=== PATIENT | male | born 1960 | race Hispanic/Latino ===

== ENCOUNTER 2018-02-09 07:44 | Inpatient (IN) | payer MEDICARE ==
[2018-02-09 07:45] VITALS: BMI 29.7
--- NOTE | 2018-02-09 08:02 | C.PDOC ---
History Of Present Illness 57 y/o male presents to the ED with complaints of new-onset and worsening pain to the right 2nd through 5th toes, beginning 2-3 weeks ago. Denies recent trauma. Patient feels as if the toes are . He reports developing new- onset redness to the right toes as well. Patient is also complaining of recurrent pain to the right mid calf and has history of prior right leg bypass surgery. States that he had similar prior calf pain many years ago which resolved after the bypass, but now pain has recurred. He denies any calf swelling. Patient also reports history of chronic chest pain due to trauma, upper GI bleed, and is on chronic pain meds. Time Seen by Provider: 02/09/18 08:02 Chief Complaint (Nursing): Medical Clearance History Per: Patient History/Exam Limitations: no limitations Onset/Duration Of Symptoms: Days Current Symptoms Are (Timing): Worse Past Medical History Reviewed: Historical Data, Nursing Documentation, Vital Signs Vital Signs: Last Vital Signs Temp 97.8 F 02/09/18 07:48 Pulse 62 02/09/18 07:48 Resp 20 02/09/18 07:48 BP 112/69 02/09/18 07:48 Pulse Ox 98 02/09/18 08:32 - Medical History PMH: Anemia, Arthritis, Bronchitis, CAD (2), Colonic Polyps, COPD, Diabetes, Diverticulitis (need sx as per pt), Gastrointestinal Ulcer, Gall Bladder Disease , HTN, Hypercholesterolemia, Peripheral Edema (rle +1), Pneumonia Denies: Cardia Arrhythmia, CHF, Depression, Mitral Valve Prolapse, Chronic Kidney Disease Surgical History: CABG, Cholecystectomy, Coronary Stent Denies: Pacemaker - [facility] Procedures ANGIOPLASTY OF OTHER NON-CORONARY VESSEL(S) (01/04/13) ARTERIAL CATHETERIZATION (01/04/13) ATHERECTOMY OF OTHER NON-CORONARY VESSEL(S) (01/04/13) CONTRAST AORTOGRAM (01/04/13) CONTRAST ARTERIOGRAM-LEG (01/04/13) CONTROL BLEEDING IN GASTROINTESTINAL TRACT, ENDO (04/03/17) CORONAR ARTERIOGR-2 CATH (08/21/12) EXCISION OF ESOPHAGOGASTRIC JUNCTION, ENDO, DIAGN (09/08/17) EXCISION OF STOMACH, ENDO, DIAGN (09/08/17) INJECT/INFUSE NEC (06/20/13) INJECT/INFUSE THROMBOLYTIC AGENT (01/04/13) INSERTION OF ENDOTRACHEAL AIRWAY INTO TRACHEA, VIA OPENING (09/08/17) INSERTION OF INFUSION DEVICE INTO LOWER VEIN, PERC APPROACH (09/08/17) INSPECTION OF LOWER INTESTINAL TRACT, ENDO (09/08/17) INSPECTION OF UPPER INTESTINAL TRACT, ENDO (01/31/18) INTRODUCTION OF OTHER THERAPEUTIC SUBSTANCE INTO UP GI, ENDO (04/03/17) LEFT HEART CARDIAC CATH (08/21/12) LT HEART ANGIOCARDIOGRAM (08/21/12) NEBULIZER THERAPY (12/06/12) PHERESIS OF PLATELETS, SINGLE (09/08/17) PROCEDURE ON SINGLE VESSEL (01/04/13) RESPIRATORY VENTILATION, 24-96 CONSECUTIVE HOURS (09/08/17) RIGID PROCTOSIGMOIDOSCOPY (12/15/13) TRANSFUSE NONAUT FROZEN PLASMA IN PERIPH VEIN, PERC (09/08/17) TRANSFUSE NONAUT RED BLOOD CELLS IN PERIPH VEIN, PERC (09/08/17) VACCINATION NEC (11/21/13) Family History: States: CAD - Social History Hx Tobacco Use: Yes Hx Alcohol Use: No Hx Substance Use: Yes (smokes pot 4 x's a day) - Immunization History Hx Tetanus Toxoid Vaccination: Yes Hx Influenza Vaccination: Yes Hx Pneumococcal Vaccination: Yes Review Of Systems Except As Marked, All Systems Reviewed And Found Negative. Constitutional: Negative for: Fever, Chills Cardiovascular: Positive for: Chest Pain (chronic per patient, s/p trauma) Respiratory: Negative for: Shortness of Breath Gastrointestinal: Negative for: Vomiting, Diarrhea Musculoskeletal: Positive for: Leg Pain (right mid calf pain), Foot Pain (over right 2nd-5th toes). Negative for: Other (calf swelling) Skin: Positive for: Rash (redness to toes) Neurological: Positive for: Numbness (to right toes). Negative for: Dizziness Physical Exam - Physical Exam Appears: Non-toxic, No Acute Distress Skin: Warm, Dry, Other (Non-blanching erythema to plantar aspect of right toes 2 -5. There is some dried ulceration to the dorsal aspect of 2nd toe, with no pus or swelling) Head: Atraumatic, Normacephalic Eye(s): bilateral: Normal Inspection, PERRL, EOMI Oral Mucosa: Moist Neck: Normal ROM Chest: Symmetrical, Other (chronic intercostal subluxation with coughing) Cardiovascular: Rhythm Regular, No Murmur Respiratory: Normal Breath Sounds, No Rales, No Rhonchi, No Wheezing, Other ( NARD) Gastrointestinal/Abdominal: Soft, No Tenderness, No Distention Back: Normal Inspection, No Vertebral Tenderness Extremity: Normal ROM, No Calf Tenderness (or swelling), No Deformity, Other ( Decreased sensation to right toes 2-5) Pulses: Left Dorsalis Pedis: Normal, Right Dorsalis Pedis: Normal Neurological/Psych: Oriented x3, Normal Speech, Normal Cranial Nerves, Other ( No focal deficits) ED Course And Treatment - Laboratory Results Result Diagrams: 02/09/18 08:18 02/09/18 08:18 O2 Sat by Pulse Oximetry: 98 (RA) Pulse Ox Interpretation: Normal - Radiology CXR: Interpreted by Me, Viewed By Me CXR Interpretation: Yes: No Acute Disease, Other (sternal wires present) Progress - Re-Evaluation Re-evaluation Note: 02/09/18 08:11 D/W DR ARIAS STATES TO ADMIT TO HIS SERVICE FOR ANGIO, ARTERIAL INSUFF - Data Reviewed Data Reviewed: Lab, Diagnostic imaging, EKG, Old records - Continuity of Care Discussed pt. case with outreach consultant/specialty: Vascular Surgery Medical Decision Making Medical Decision Making: Impression: Pain and redness to right toes (2-5), right calf pain, hx of RLE bypass Initial Plan: --EKG --Blood type/screen --CMP --CBC --PTT/PT --Urinalysis --Chest X-Ray --IV fluids --Dilaudid 1 mg IVP --Venous Doppler study RLE --Paged vascular surgery Disposition Counseled Patient/Family Regarding: Studies Performed, Diagnosis - Disposition Disposition: HOSPITALIZED Disposition Time: 09:47 Condition: SERIOUS Forms: [facility] (Malaysian) - Clinical Impression Clinical Impression: Arterial insufficiency with ischemic ulcer, Claudication of lower extremity - Scribe Statement The provider has reviewed the documentation as recorded by the Carmen Nicole Provider Attestation: All medical record entries made by the Adanibryan were at my direction and personally dictated by me. I have reviewed the chart and agree that the record accurately reflects my personal performance of the history, physical exam, medical decision making, and the department course for this patient. I have also personally directed, reviewed, and agree with the discharge instructions and disposition. Decision To Admit - Pt Status Changed To: Hospital Disposition Of: Inpatient - Admit Certification Admit to Inpatient:: After my assessment, the patient will require hospitalization for at least two midnights. This is because of the severity of symptoms shown, intensity of services needed, and/or the medical risk in this patient being treated as an outpatient. - InPatient: Physician Admission Certification: I certify that this patient requires 2 or more midnights of care for the following reason:: SEE NOTE - . Bed Request Type: Regular Admitting Physician: Saran Arias Jr. Patient Diagnosis: Arterial insufficiency with ischemic ulcer, Claudication of lower extremity
[2018-02-09] MEDS ORDERED: Sodium Chloride 0.9% 1,000 ML IV ONE (08:03)
[2018-02-09] MEDS ORDERED: HYDROmorphone 0.5 mg/0.5 ml ISec IVP STA (08:10)
[2018-02-09 08:22] LABS: BASO # 0.1 K/uL (0.0-0.2); BASO % 1.1 % (0.0-2.0); EOS # 0.2 K/uL (0.0-0.7); EOS % 1.8 % (0.0-4.0); LYMPH # 1.6 K/uL (1.0-4.3); LYMPH % 18.7 % (20.0-40.0); MEAN CELL VOLUME 70.4 fL (80.0-94.0); MEAN CORPUSCULAR HEMOGLOBIN 22.2 pg (27.0-31.0); MEAN CORPUSCULAR HGB CONC 31.5 g/dL (33.0-37.0); MEAN PLATELET VOLUME 9.1 fL (7.2-11.7); MONO # 0.7 K/uL (0.0-0.8); MONO % 7.6 % (0.0-10.0); NEUT # 6.2 K/uL (1.8-7.0); NEUT % 70.8 % (50.0-75.0); RBC 5.87 Mil/uL (4.40-5.90); RED CELL DISTRIBUTION WIDTH 22.8 % (11.5-14.5); WHITE BLOOD COUNT 8.8 K/uL (4.8-10.8)
[2018-02-09 08:31] LABS: INR 1.1; PROTHROMBIN TIME 11.5 SECONDS (9.7-12.2)
--- NOTE | 2018-02-09 08:34 | RAD ---
Date of service: 02/09/2018 HISTORY: Pre Op COMPARISON: No prior. TECHNIQUE: Chest PA and lateral FINDINGS: LUNGS: No active pulmonary disease. PLEURA: No significant pleural effusion identified. No pneumothorax apparent. CARDIOVASCULAR: Cardiomegaly para discontinuous sternal wires without comparison for chronicity assessment OSSEOUS STRUCTURES: No significant abnormalities. VISUALIZED UPPER ABDOMEN: Normal. OTHER FINDINGS: None. IMPRESSION: No suspect active disease. No infiltrate. Mild cardiomegaly with midline sternotomy with continuous wires of unknown chronicity.
[2018-02-09] MEDS ORDERED: HYDROmorphone 1 mg/ml ISec IVP ONE (08:45)
[2018-02-09 08:52] LABS: ALB/GLOB RATIO 1.5 (1.0-2.1); ALBUMIN 3.9 g/dL (3.5-5.0); ALT/SGPT 73 U/L (21-72); AST/SGOT 27 U/L (17-59); BLOOD UREA NITROGEN 26 mg/dL (9-20); CALCIUM 9.1 mg/dl (8.6-10.4); GFR AFRICAN-AMERICAN > 60; GFR NON-AFRICAN AMERICAN 52
--- NOTE | 2018-02-09 12:21 | CP.PCM.CON ---
History of Present Illness - History of Present Illness History of Present Illness: Vascular surgery consult note for Mr. Card is a 57 yr old male with PMH of PAD, HTN, DM and HLD presented to the [facility] ED with pain in his 1st-5th toes on the right with color changes to the affected toes. The pain started 3 weeks ago, is sharp and constant, improves initially with walking but returns when walking greater than 1/2 block. Pain often begins during rest. Patient also reports numbness in his 1st-5th toes on the right. he otherwise denies calf pain, inability to move his foot, pain in the foot, n/v/f/c. Patient endorses chronic musculoskeletal chest pain 2/2 previous CABG and neck pain s/p lesion biopsy recently. PMHx: PAD, HTN, DM and HLD, colitis, diverticulitis, PUD with GI bleed PSHx: Cholecystectomy (2004), CABG 2008, popliteal stents 2013, R& L hernia repair ( 2017), colonoscopy (2017), Skin biopsy( 2017), EGD 02/01/18 All: Penicillin, Levofloxacin --> generalized rash and hives Social: current smoker, 1-2 PPD x 30 years. denies ETOH, last used marijuana last night Family hx: Father of a [place] @ 51 yo. Mother: of ovarian cancer @ 74 yo Review of Systems - Review of Systems All systems: reviewed and no additional remarkable complaints except Review of Systems: as per HPI - Musculoskeletal Additional comments: numbness in 1st through 4th toes right foot - Integumentary Additional comments: Whitening of the 1st-5th R toes - Neurological Additional comments: numbness in 1st through 4 toes in right foot Past Patient History - Infectious Disease Hx of Infectious Diseases: None - Tetanus Immunizations Tetanus Immunization: Unknown - Past Social History Smoking Status: Light Smoker < 10 Cigarettes Daily Drugs: Cannabis - CARDIAC Hx Cardia Arrhythmia: No Hx Congestive Heart Failure: No Hx Hypercholesterolemia: Yes Hx Hypertension: Yes Hx Mitral Valve Prolapse: No Hx Pacemaker: No Hx Peripheral Edema: No - PULMONARY Hx Bronchitis: Yes Hx Pneumonia: Yes - NEUROLOGICAL Hx Neurological Disorder: Yes (rle peripheral neuropathy) - HEENT Hx HEENT Problems: No - RENAL Hx Chronic Kidney Disease: No - ENDOCRINE/METABOLIC Hx Diabetes Mellitus Type 2: Yes (dx age 48) - HEMATOLOGICAL/ONCOLOGICAL Hx Anemia: Yes - INTEGUMENTARY Hx Dermatological Problems: Yes - MUSCULOSKELETAL/RHEUMATOLOGICAL Hx Arthritis: Yes - GASTROINTESTINAL Hx Diverticulitis: Yes Hx Gall Bladder Disease: Yes - GENITOURINARY/GYNECOLOGICAL Hx Genitourinary Disorders: Yes Other/Comment: acute kidney injury 2018 - PSYCHIATRIC Hx Depression: No Hx Substance Use: Yes (moderate cannabis abuse) - SURGICAL HISTORY Hx Cholecystectomy: Yes Hx Coronary Artery Bypass Graft: Yes Hx Coronary Stent: Yes - ANESTHESIA Hx Anesthesia: Yes Hx Anesthesia Reactions: Yes (WAKES UP ANGRY) Hx Malignant Hyperthermia: No Meds Allergies/Adverse Reactions: Allergies Allergy/AdvReac Type Severity Reaction Status Date / Time levofloxacin [From Levaquin] Allergy Severe URTICARIA Verified 01/31/18 10:28 Penicillins Allergy Severe RASH Verified 01/31/18 10:28 - Medications Medications: Current Medications Furosemide (Lasix) 20 mg PO DAILY [facility] Sodium Chloride (Sodium Chloride 0.9%) 1,000 mls @ 100 mls/hr IV .Q10H ONE Stop: 02/09/18 18:02 Last Admin: 02/09/18 08:44 Dose: 100 mls/hr Mesalamine (Canasa) 1,000 mg [place] HS SERGO Ondansetron HCl (Zofran Tab) 4 mg PO DAILY PRN PRN Reason: Nausea/Vomiting Sotalol HCl (Betapace) 80 mg PO BID SERGO Physical Exam - Constitutional Appears: Well, Non-toxic, No Acute Distress - Head Exam Head Exam: ATRAUMATIC, NORMOCEPHALIC - ENT Exam ENT Exam: Mucous Membranes Moist - Neck Exam Neck exam: Positive for: Normal Inspection (biopsy scar on the back of the neck) - Respiratory Exam Respiratory Exam: Clear to Auscultation Bilateral, NORMAL BREATHING PATTERN. absent: Rales, Rhonchi, Wheezes, Respiratory Distress, Stridor - Cardiovascular Exam Cardiovascular Exam: REGULAR RHYTHM, RRR, +S1, +S2 - GI/Abdominal Exam GI & Abdominal Exam: Normal Bowel Sounds, Soft. absent: Bruit, Distended, Firm , Guarding, Hernia, Mass, Organomegaly, Pulsatile Mass, Rigid, Tenderness - Extremities Exam Extremities exam: Positive for: normal inspection, tenderness. Negative for: calf tenderness, joint swelling, pedal edema Additional comments: RLE DP nondopperable, PT dopperable, toes slightly cool to touch. LLE DP and TP 2+ dopplerable and palpable, warm to touch, right toes tender to palpation - Neurological Exam Neurological exam: Alert, Oriented x3 - Psychiatric Exam Psychiatric exam: Normal Affect, Normal Mood - Skin Skin Exam: Dry, Erythema, Intact, Warm Additional comments: right toes are erythematous with poor capillary refill, no mottling, or darkening of the skin noted Results - Vital Signs Recent Vital Signs: Last Vital Signs Temp 97.8 F 02/09/18 10:23 Pulse 48 L 02/09/18 10:23 Resp 17 02/09/18 10:23 BP 151/78 H 02/09/18 10:23 Pulse Ox 99 02/09/18 10:23 - Labs Result Diagrams: 02/09/18 08:18 02/09/18 08:18 Labs: Laboratory Results - last 24 hr 02/09/18 02/09/18 02/09/18 08:18 08:18 08:18 WBC 8.8 RBC 5.87 Hgb 13.0 Hct 41.3 MCV 70.4 L MCH 22.2 L MCHC 31.5 L RDW 22.8 H Plt Count 176 MPV 9.1 Neut % (Auto) 70.8 Lymph % (Auto) 18.7 L [place] % (Auto) 7.6 Eos % (Auto) 1.8 Baso % (Auto) 1.1 Neut # (Auto) 6.2 Lymph # (Auto) 1.6 [place] # (Auto) 0.7 Eos # (Auto) 0.2 Baso # (Auto) 0.1 PT 11.5 INR 1.1 APTT 34 Sodium 141 Potassium 4.1 Chloride 107 Carbon Dioxide 26 Anion Gap 12 BUN 26 H Creatinine 1.4 Est GFR ( Amer) > 60 Est GFR (Non-Af Amer) 52 Random Glucose 150 H Calcium 9.1 Total Bilirubin 0.3 AST 27 ALT 73 H Alkaline Phosphatase 187 H Total Protein 6.6 Albumin 3.9 Globulin 2.6 Albumin/Globulin Ratio 1.5 Blood Type Antibody Screen 02/09/18 09:30 WBC RBC Hgb Hct MCV MCH MCHC RDW Plt Count MPV Neut % (Auto) Lymph % (Auto) [place] % (Auto) Eos % (Auto) Baso % (Auto) Neut # (Auto) Lymph # (Auto) [place] # (Auto) Eos # (Auto) Baso # (Auto) PT INR APTT Sodium Potassium Chloride Carbon Dioxide Anion Gap BUN Creatinine Est GFR ( Amer) Est GFR (Non-Af Amer) Random Glucose Calcium Total Bilirubin AST ALT Alkaline Phosphatase Total Protein Albumin Globulin Albumin/Globulin Ratio Blood Type A POSITIVE Antibody Screen Negative Assessment & Plan - Assessment and Plan (Free Text) Assessment: 57 yr old male s/p popliteal stents 3-4 yrs ago and recent cessation of plavix d /t GI bleed with right 1stg through 5th toe pain, redness,and symptoms of claudication in the RLE Plan: - angiogram +/- intervention today - encourage smoking cessation - patient to be on bedrest for 4 hours post angiogram - encourage ambulation following 4 hour bedrest period - continue to hold blood thinners d/t recent GI recs, duodenal ulcer disease - all home meds restarted - may begin HHD - pain medication PRN - d/w Dr. Ross, all further recs per him Daxa Hauser, PGY 1 - Date & Time Date: 02/09/18 Time: 11:15
--- NOTE | 2018-02-09 12:40 | CP.PCM.PN ---
Subjective - Date & Time of Evaluation Date of Evaluation: 02/09/18 Time of Evaluation: 12:37 - Subjective Subjective: severe ischemic rest pain right foot previous stents on right DAPA stopped 09/11 during massive GI bleed recent upper endo residual duodenal ulceration no contrast imaging studies will do angio+/- intervention Objective - Vital Signs/Intake and Output Vital Signs (last 24 hours): Temp Pulse Resp BP Pulse Ox 97.8 F 48 L 17 151/78 H 99 02/09/18 10:23 02/09/18 10:23 02/09/18 10:23 02/09/18 10:23 02/09/18 10:23 - Medications Medications: Current Medications Acetaminophen (Tylenol 325mg Tab) 650 mg PO Q6 PRN PRN Reason: Pain, moderate (4-7) Furosemide (Lasix) 20 mg PO DAILY SERGO Sodium Chloride (Sodium Chloride 0.9%) 1,000 mls @ 100 mls/hr IV .Q10H ONE Stop: 02/09/18 18:02 Last Admin: 02/09/18 08:44 Dose: 100 mls/hr Mesalamine (Canasa) 1,000 mg [place] HS SERGO Ondansetron HCl (Zofran Tab) 4 mg PO DAILY PRN PRN Reason: Nausea/Vomiting Sotalol HCl (Betapace) 80 mg PO BID SERGO - Labs Labs: 02/09/18 08:18 02/09/18 08:18 PT 11.5 SECONDS (9.7-12.2) 02/09/18 08:18 INR 1.1 02/09/18 08:18 APTT 34 SECONDS (21-34) 02/09/18 08:18
[2018-02-09] MEDS ORDERED: Midazolam 2 MG/2 ML VIAL ONE ×5 (12:44→13:09)
[2018-02-09] MEDS ORDERED: Iodixanol 320 MG/ML 100 ML BOTTLE IV ONE ×2 (12:50→13:26)
[2018-02-09] MEDS ORDERED: Nitroglycerin 50mg in D5W 50 MG/250 ML BOTTLE IV ONE (12:52)
--- NOTE | 2018-02-09 15:51 | PCM.SURG1 ---
Surgeon's Initial Post Op Note - Surgeon's Notes Surgeon: nellie Technical Mgr: 0 Type of Anesthesia: IV Sedation Anesthesia Administered By: laci Pre-Operative Diagnosis: ischemic rest pain right foot. occluded stents Operative Findings: occluded stents right leg. severe tibial disease. Posterior tibial major vessel into foot. successful reopening of sfa and posterior tibial. perclose left groin Post-Operative Diagnosis: same Operation Performed: aortofemoral angiogram via left groin. selective catherization of right femoral artery. pathway atherectomy of occluded stents right sfa. pathway atherectomy of distal popliteal/ proximal posterior tibial. balloon angioplasty. 4x33 DANY to distal popliteal proximal posterior tibial. perclose left groin Specimen/Specimens Removed: 0 Estimated Blood Loss: EBL {In ML}: 50 Blood Products Given: N/A Drains Used: No Drains Post-Op Condition: Good Date of Surgery/Procedure: 02/09/18 Time of Surgery/Procedure: 15:54
--- NOTE | 2018-02-09 17:50 | CP.PCM.HP ---
History of Present Illness - History of Present Illness History of Present Illness: Mr. Card is a 57 yr old male with PMH of PAD, HTN, DM and HLD presented to the [facility] ED with pain in his 1st-5th toes on the right with color changes to the affected toes. The pain started 3 weeks ago, is sharp and constant, improves initially with walking but returns when walking greater than 1/2 block. Pain often begins during rest. Patient also reports numbness in his 1st-5th toes on the right. he otherwise denies calf pain, inability to move his foot, pain in the foot, n/v/f/c. Patient endorses chronic musculoskeletal chest pain 2/2 previous CABG and neck pain s/p lesion biopsy recently. PMHx: PAD, HTN, DM and HLD, colitis, diverticulitis, PUD with GI bleed PSHx: Cholecystectomy (2004), CABG 2008, popliteal stents 2013, R& L hernia repair ( 2017), colonoscopy (2017), Skin biopsy( 2017), EGD 02/01/18 All: Penicillin, Levofloxacin --> generalized rash and hives Social: current smoker, 1-2 PPD x 30 years. denies ETOH, last used marijuana last night Family hx: Father of a [place] @ 51 yo. Mother: of ovarian cancer @ 74 yo Present on Admission - Present on Admission Any Indicators Present on Admission: No Review of Systems - Review of Systems All systems: reviewed and no additional remarkable complaints except Review of Systems: as per HPI Past Patient History - Infectious Disease Hx of Infectious Diseases: None - Tetanus Immunizations Tetanus Immunization: Unknown - Past Medical History & Family History Past Medical History?: Yes - Past Social History Smoking Status: Light Smoker < 10 Cigarettes Daily Drugs: Cannabis - CARDIAC Hx Cardia Arrhythmia: No Hx Congestive Heart Failure: No Hx Hypercholesterolemia: Yes Hx Hypertension: Yes Hx Mitral Valve Prolapse: No Hx Pacemaker: No Hx Peripheral Edema: No - PULMONARY Hx Bronchitis: Yes Hx Pneumonia: Yes - NEUROLOGICAL Hx Neurological Disorder: Yes (rle peripheral neuropathy) - HEENT Hx HEENT Problems: No - RENAL Hx Chronic Kidney Disease: No - ENDOCRINE/METABOLIC Hx Diabetes Mellitus Type 2: Yes (dx age 48) - HEMATOLOGICAL/ONCOLOGICAL Hx Anemia: Yes - INTEGUMENTARY Hx Dermatological Problems: Yes - MUSCULOSKELETAL/RHEUMATOLOGICAL Hx Arthritis: Yes - GASTROINTESTINAL Hx Diverticulitis: Yes Hx Gall Bladder Disease: Yes - GENITOURINARY/GYNECOLOGICAL Hx Genitourinary Disorders: Yes Other/Comment: acute kidney injury 2018 - PSYCHIATRIC Hx Depression: No Hx Substance Use: Yes (moderate cannabis abuse) - SURGICAL HISTORY Hx Cholecystectomy: Yes Hx Coronary Artery Bypass Graft: Yes Hx Coronary Stent: Yes - ANESTHESIA Hx Anesthesia: Yes Hx Anesthesia Reactions: Yes (WAKES UP ANGRY) Hx Malignant Hyperthermia: No Meds Allergies/Adverse Reactions: Allergies Allergy/AdvReac Type Severity Reaction Status Date / Time levofloxacin [From Levaquin] Allergy Severe URTICARIA Verified 01/31/18 10:28 Penicillins Allergy Severe RASH Verified 01/31/18 10:28 Physical Exam - Constitutional Appears: Well, Non-toxic, No Acute Distress - Head Exam Head Exam: ATRAUMATIC, NORMOCEPHALIC - ENT Exam ENT Exam: Mucous Membranes Moist - Respiratory Exam Respiratory Exam: NORMAL BREATHING PATTERN - Cardiovascular Exam Cardiovascular Exam: +S1, +S2 - GI/Abdominal Exam GI & Abdominal Exam: Soft. absent: Distended, Firm, Guarding, Tenderness - Extremities Exam Extremities exam: Positive for: tenderness. Negative for: calf tenderness, pedal edema Additional comments: right toes are erythematous with poor capillary refill, no mottling, or darkening of the skin noted, RLE DP nondopperable, PT dopperable, toes slightly cool to touch. LLE DP and TP 2+ dopplerable and palpable, warm to touch , right toes tender to palpation - Neurological Exam Neurological exam: Alert, Oriented x3 - Psychiatric Exam Psychiatric exam: Normal Affect, Normal Mood - Skin Skin Exam: Dry, Intact, Normal Color Additional comments: RLE DP nondopperable, PT dopperable, toes slightly cool to touch. LLE DP and TP 2+ dopplerable and palpable, warm to touch, right toes tender to palpation Results - Vital Signs Recent Vital Signs: Last Vital Signs Temp 97.8 F 02/09/18 10:23 Pulse 48 L 02/09/18 10:23 Resp 17 02/09/18 10:23 BP 151/78 H 02/09/18 10:23 Pulse Ox 99 02/09/18 10:23 - Labs Result Diagrams: 02/09/18 08:18 02/09/18 08:18 Labs: Laboratory Results - last 24 hr 02/09/18 02/09/18 02/09/18 08:18 08:18 08:18 WBC 8.8 RBC 5.87 Hgb 13.0 Hct 41.3 MCV 70.4 L MCH 22.2 L MCHC 31.5 L RDW 22.8 H Plt Count 176 MPV 9.1 Neut % (Auto) 70.8 Lymph % (Auto) 18.7 L [place] % (Auto) 7.6 Eos % (Auto) 1.8 Baso % (Auto) 1.1 Neut # (Auto) 6.2 Lymph # (Auto) 1.6 [place] # (Auto) 0.7 Eos # (Auto) 0.2 Baso # (Auto) 0.1 PT 11.5 INR 1.1 APTT 34 Sodium 141 Potassium 4.1 Chloride 107 Carbon Dioxide 26 Anion Gap 12 BUN 26 H Creatinine 1.4 Est GFR ( Amer) > 60 Est GFR (Non-Af Amer) 52 POC Glucose (mg/dL) Random Glucose 150 H Calcium 9.1 Total Bilirubin 0.3 AST 27 ALT 73 H Alkaline Phosphatase 187 H Total Protein 6.6 Albumin 3.9 Globulin 2.6 Albumin/Globulin Ratio 1.5 Blood Type Antibody Screen 02/09/18 02/09/18 02/09/18 09:30 16:11 16:50 WBC RBC Hgb Hct MCV MCH MCHC RDW Plt Count MPV Neut % (Auto) Lymph % (Auto) [place] % (Auto) Eos % (Auto) Baso % (Auto) Neut # (Auto) Lymph # (Auto) [place] # (Auto) Eos # (Auto) Baso # (Auto) PT INR APTT Sodium Potassium Chloride Carbon Dioxide Anion Gap BUN Creatinine Est GFR ( Amer) Est GFR (Non-Af Amer) POC Glucose (mg/dL) 56 L 59 L Random Glucose Calcium Total Bilirubin AST ALT Alkaline Phosphatase Total Protein Albumin Globulin Albumin/Globulin Ratio Blood Type A POSITIVE Antibody Screen Negative 02/09/18 17:25 WBC RBC Hgb Hct MCV MCH MCHC RDW Plt Count MPV Neut % (Auto) Lymph % (Auto) [place] % (Auto) Eos % (Auto) Baso % (Auto) Neut # (Auto) Lymph # (Auto) [place] # (Auto) Eos # (Auto) Baso # (Auto) PT INR APTT Sodium Potassium Chloride Carbon Dioxide Anion Gap BUN Creatinine Est GFR ( Amer) Est GFR (Non-Af Amer) POC Glucose (mg/dL) 78 Random Glucose Calcium Total Bilirubin AST ALT Alkaline Phosphatase Total Protein Albumin Globulin Albumin/Globulin Ratio Blood Type Antibody Screen Assessment & Plan - Assessment and Plan (Free Text) Assessment: 57 yr old male s/p popliteal stents 3-4 yrs ago and recent cessation of plavix d /t GI bleed with right 1stg through 5th toe pain, redness,and symptoms of claudication in the RLE Plan: - angiogram +/- intervention today - encourage smoking cessation - patient to be on bedrest for 4 hours post angiogram - encourage ambulation following 4 hour bedrest period - continue to hold blood thinners d/t recent GI recs, duodenal ulcer disease - all home meds restarted - may begin HHD - pain medication PRN - d/w Dr. Ross, all further recs per him Daxa Hauser, PGY 1 - Date & Time Date: 02/09/18 Time: 11:15 Decision To Admit - Pt Status Changed To: Hospital Disposition Of: Observation - . Bed Request Type: Regular Admitting Physician: Saran Ross Jr.
[2018-02-09] MEDS: oxyCODONE 10 mg Immediate Release Tab PO SCH (18:15)
[2018-02-09] MEDS ORDERED: oxyCODONE 5 mg Immediate Release Tab PO SCH (22:00)
[2018-02-09] MEDS: (Novolin R) Insulin Human Regular 100 units/ml vial SC SCH (22:05)
[2018-02-10] MEDS: oxyCODONE 10 mg Immediate Release Tab PO SCH (01:14)
[2018-02-10] MEDS: Dextrose 5%/0.45% NS 1,000 ML IV SCH ×2 (02:00→04:25)
[2018-02-10 06:28] VITALS: RESP 20
[2018-02-10] MEDS: (Novolin R) Insulin Human Regular 100 units/ml vial SC SCH (07:10)
[2018-02-10 07:14] LABS: HEMOGLOBIN 12.8 g/dL (12.0-18.0); MEAN CELL VOLUME 69.5 fL (80.0-94.0); MEAN CORPUSCULAR HEMOGLOBIN 21.8 pg (27.0-31.0); MEAN CORPUSCULAR HGB CONC 31.4 g/dL (33.0-37.0); MEAN PLATELET VOLUME 9.1 fL (7.2-11.7); RBC 5.88 Mil/uL (4.40-5.90); RED CELL DISTRIBUTION WIDTH 22.2 % (11.5-14.5); WHITE BLOOD COUNT 6.8 K/uL (4.8-10.8)
[2018-02-10 08:05] LABS: ALB/GLOB RATIO 1.4 (1.0-2.1); ALBUMIN 3.4 g/dL (3.5-5.0); ALT/SGPT 266 U/L (21-72); AST/SGOT 298 U/L (17-59); BLOOD UREA NITROGEN 15 mg/dL (9-20); CALCIUM 8.8 mg/dl (8.6-10.4); GFR AFRICAN-AMERICAN > 60; GFR NON-AFRICAN AMERICAN > 60
--- NOTE | 2018-02-10 08:13 | CP.PCM.PN ---
Subjective - Date & Time of Evaluation Date of Evaluation: 02/10/18 Time of Evaluation: 08:11 - Subjective Subjective: dw plapable PT pulse dc on plavix anti ulcer rx no asa need to stop smoking fu office 1 week cr 1.2 Objective - Vital Signs/Intake and Output Vital Signs (last 24 hours): Temp Pulse Resp BP Pulse Ox 98.8 F 62 20 135/70 100 02/10/18 05:30 02/10/18 05:30 02/10/18 05:30 02/10/18 05:30 02/10/18 05:30 Intake and Output: 02/10/18 02/10/18 06:59 18:59 Intake Total 1440 Balance 1440 - Medications Medications: Current Medications Acetaminophen (Tylenol 325mg Tab) 650 mg PO Q6 PRN PRN Reason: Pain, moderate (4-7) Clopidogrel Bisulfate (Plavix) 75 mg PO DAILY [facility] Famotidine (Pepcid) 20 mg PO DAILY [facility] Last Admin: 02/09/18 18:14 Dose: 20 mg Fentanyl (Duragesic) 50 patch TD Q72 [facility] Furosemide (Lasix) 20 mg PO DAILY [facility] Gabapentin (Neurontin) 300 mg PO TID [facility] Last Admin: 02/09/18 18:15 Dose: 300 mg Glipizide (Glucotrol Xl) 10 mg PO DAILY [facility] Dextrose/Sodium Chloride (Dextrose 5%/0.45% Ns 1000 Ml) 1,000 mls @ 100 mls/hr IV .Q10H [facility] Last Admin: 02/10/18 04:25 Dose: 100 mls/hr Insulin Human Regular (Novolin R) 0 unit SC ACHS [facility] PRN Reason: Protocol Last Admin: 02/10/18 07:10 Dose: Not Given Lactobacillus Acidophilus (Bacid Acidophilus) 1 cap PO DAILY [facility] Mesalamine (Canasa) 1,000 mg ME HS [facility] Last Admin: 02/09/18 21:21 Dose: Not Given Metoprolol Succinate (Toprol Xl) 50 mg PO DAILY [facility] Ondansetron HCl (Zofran Tab) 4 mg PO DAILY PRN PRN Reason: Nausea/Vomiting Oxycodone HCl (Oxycodone Immediate Release Tab) 30 mg PO Q8H [facility] Last Admin: 02/10/18 01:14 Dose: 30 mg Pneumococcal Polyvalent Vaccine (Pneumovax 23 Vaccine) 0.5 ml IM .ONCE ONE Stop: 02/11/18 10:01 Rosuvastatin Calcium (Crestor) 20 mg PO HS [facility] Last Admin: 02/09/18 21:21 Dose: 20 mg Sotalol HCl (Betapace) 80 mg PO BID [facility] Last Admin: 02/09/18 18:15 Dose: 80 mg - Labs Labs: 02/10/18 07:00 02/10/18 07:00 PT 11.5 SECONDS (9.7-12.2) 02/09/18 08:18 INR 1.1 02/09/18 08:18 APTT 34 SECONDS (21-34) 02/09/18 08:18
[2018-02-10 08:40] VITALS: BP 152/72; PULSE 60; TEMP 98.5; O2SAT 98
[2018-02-10] MEDS ORDERED: Lactobacillus Acidophilus 500 MU Cap PO SCH (10:00)
[2018-02-10] MEDS ORDERED: GlipiZIDE 10 mg SR Tab PO SCH (10:00)
[2018-02-10] MEDS ORDERED: Metoprolol Succinate 50 mg XL Tab PO SCH (10:00)
--- NOTE | 2018-02-10 12:59 | VASCLAB ---
Date of service: 02/09/2018 PROCEDURE: Right Lower Extremity Venous Duplex Exam. HISTORY: CALF PAIN R/O DVT PRIORS: None. TECHNIQUE: Right common femoral, femoral, popliteal and posterior tibial, peroneal and great saphenous veins were evaluated. Flow was assessed with color Doppler, compressibility, assessment of phasic flow and augmentation response. Report prepared by BRETT Quinones, RVT FINDINGS: RIGHT: 1. Common Femoral Vein: 1.1. Compressibility - Fully compressible: Thrombus - None: Flow - Phasic: Augmentation -Normal: Reflux - None. 2. Femoral Vein: 2.1. Compressibility - Fully compressible: Thrombus - None: Flow - Phasic: Augmentation -Normal: Reflux - None. 3. Popliteal Vein: 3.1. Compressibility - Fully compressible: Thrombus - None: Flow - Phasic: Augmentation -Normal: Reflux - None. 4. Posterior Tibial Vein: 4.1. Compressibility - Fully compressible: Thrombus - None: Flow - Phasic: Augmentation -Normal: Reflux - None. 5. Peroneal Vein: 5.1. Compressibility - Fully compressible: Thrombus - None: Flow - Phasic: Augmentation -Normal: Reflux - None. 6. Great Saphenous Vein: 6.1. Compressibility - Fully compressible: Thrombus -None: Flow - Phasic: Augmentation - Normal: Reflux - None. OTHER FINDINGS: Occluded right proximal to mid superficial femoral artery. Dr. Tidwell notified about the findings. IMPRESSION: No evidence of deep or superficial vein thrombosis of the right lower extremity with excellent venous flow. Normal valve function noted of the right side. Normal venous flow noted in the left common femoral vein.
--- NOTE | 2018-02-11 00:04 | VAS ---
Copied To: Saran Ross Jr., MD Attending MD: Saran Ross Jr., MD DATE: 02/09/2018 PREOPERATIVE DIAGNOSES: Rest pain in right foot, occluded stents. PROCEDURES CARRIED OUT: 1. Aortofemoral angiogram via left groin with selective catheterization of right femoral artery. 2. Pathway atherectomy of the right superficial femoral artery occluded stents with drug-coated balloon angioplasty using 6 mm balloon, and then secondly, pathway atherectomy of the tibioperoneal trunk leading to the posterior tibial artery balloon angioplasty and placement of 4.0 x 33 mm long drug-eluting stent in the proximal portion of the posterior tibial artery. SURGEON: Saran Ross Jr., MD TYPISTS SUPERVISOR: None. ANESTHESIOLOGIST: Dr. Maurice with [facility]. INDICATIONS: The patient is a 57-year-old man admitted to the hospital today via emergency room with severe rest pain in his right foot. Patient had previously been hospitalized earlier in the year and has severe gastrointestinal bleeding, subsequent to that his stents occluded after agents. He has had increasing pain in the foot, previously been hospitalized in the hospital because of pain, but they were unable to carry out any procedures because an upper endoscopy revealed a persistent duodenal ulceration and concern is raised regarding thrombolytic therapy. 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 Both common iliac, external iliac and common femoral arteries appear to have occlusive of disease. Both internal iliac arteries had approximately 50% stenosis in their proximal portions. On the left side, the superficial femoral arteries are widely patent with areas of atherosclerosis down to the level of the trifurcation. The anterior tibial arteries are completely occluded. The posterior tibial artery went down to the foot, and there was a diseased origin of the peroneal artery. Below this, on the left side, detailed pictures were not taken. On the right side, there is a proximal occlusion of the previously placed stents with reconstitution above the level of the knee. Below this, there is severe tibial disease with the anterior tibial being present at the origin, occluded distally; the posterior tibial artery, the peroneal artery being occluded in their different segment. The posterior tibial artery however was a major vessel into the foot. There is no reconstitution of the dorsalis pedis. Subsequent to the performance of diagnostic arteriograms, stiff angled guidewire was advanced over the aortic bifurcation and a 7-Filipino sheath positioned in the proximal portion of the common femoral artery. The stents were then cannulated and the guidewire advanced distally. Additionally, we had trouble going across the tibial vessels, placed a filter wire, heparinized the patient and carried out a pathway atherectomy with blades up and down of the superficial femoral artery and the previous stents. The completion films revealed there was an occlusion below this. We subsequently reengaged past this and cannulated down to the posterior tibial artery using a variety of techniques including inflating of a 2, and then a 2.5, and then larger balloon, and were able to eventually engage this and open up the posterior tibial artery down to the ankle. The final completion film showed a residual flap/stenosis in the distal portion of the popliteal origin of the posterior tibial; and because of this, a 4 x 33 mm drug-eluting stent was placed across this area. The final images after this were excellent, which showed brief continuous flow down to the posterior tibial into the foot. There is also brisk lateral flow from medial blood vessels, which continued to perfuse the tibial vessels. The Perclose device was then deployed in the left groin. So procedure carried out are; 1. Aortofemoral angiogram with selective catheterization of the right femoral artery. Pathway atherectomy and drug-coated balloon angioplasty of the right femoral artery. 2. Pathway atherectomy balloon angioplasty and drug-eluting stent in the distal portion of the popliteal proximal portion of the posterior tibial artery. Images are available for review. Heparin was then reversed. The Perclose device was deployed in the left groin. Saran Ross Jr., MD
[2018-02-11] MEDS ORDERED: Pneumococcal 23-Valent Vaccine IM ONE (10:00)
== END 2018-02-10 09:30 | disposition home or self-care (01) | DRG 301 ==
LOC: C.ER 07:44 → C.9E 09:47 → C.3T 10:16
PROVIDERS: ADMIT Surgery Vascular Surgery; ATTEND Surgery Vascular Surgery
DX: E11.51 Type 2 diabetes mellitus with diabetic peripheral angiopathy without gangrene (principal); E78.00 Pure hypercholesterolemia, unspecified; I10 Essential (primary) hypertension; I25.10 Atherosclerotic heart disease of native coronary artery without angina pectoris; E11.42 Type 2 diabetes mellitus with diabetic polyneuropathy; K26.9 Duodenal ulcer, unspecified as acute or chronic, without hemorrhage or perforation; J44.9 Chronic obstructive pulmonary disease, unspecified; Z86.010 Personal history of colon polyps; Z95.1 Presence of aortocoronary bypass graft; Z87.891 Personal history of nicotine dependence; Z79.4 Long term (current) use of insulin

== ENCOUNTER 2018-09-06 13:59 | Inpatient (IN) | payer MEDICARE | END 2018-09-09 14:45 | disposition left against medical advice (07) | LOC: C.ER 13:59 → C.7D 15:53 ==